=== PATIENT | male | born 1975 | race Caucasian/White ===

== ENCOUNTER 2022-06-21 11:02 | Day surgery (SDC) | payer OTHER ==
[~2022-06-21] VITALS: Ht 182.9 cm; Wt 97.3 kg
[2022-06-21] MEDS ORDERED: XANAX 0.5MG0.5 MG PO (11:59)
[2022-06-21] MEDS ORDERED: NEURONTIN300 MG/CAP PO (12:00)
[2022-06-21] MEDS ORDERED: GLUCOPHAGE1000 MG PO (12:00)
[2022-06-21] MEDS ORDERED: LEXAPRO20 MG PO (12:00)
[2022-06-21 12:03] VITALS: BP 115/75; PULSE 64; TEMP 98.3
[2022-06-21] MEDS ORDERED: ASPIRIN PO (12:03)
--- NOTE | 2022-06-21 13:27 | NUR ---
1250 - PT did not bring a medication list; medications reviewed w/ PT and his sister. PT states the list is correct.
--- NOTE | 2022-06-21 14:34 | NUR ---
Initial visit; Patient and family seemed pleased when Search Marketing Coordinator offered to pray with Babak prior to his Procedure. Search Marketing Coordinator wished him a thorough and rapid recovery.
[2022-06-21 15:35] VITALS: BP 115/77; PULSE 56; TEMP 97.6
--- NOTE | 2022-06-21 15:35 | NUR ---
1330 - Verbal report given to Mauro DOLAN for transfer of care.
[2022-06-21 15:45] VITALS: BP 113/74; PULSE 74
[2022-06-21 16:00] VITALS: BP 118/76; PULSE 51
--- NOTE | 2022-06-21 17:17 | NUR ---
1535 Pt arrives from PACU via cart and KELSI Hilliard assist. Monitors on and alarms set. Pt appears a little drowsy, but answering all questions appropriately. Report received from KELSI Hilliard. Pt reports pain at 2-3 out of 10 and no nausea. Ice applied to left leg. Pt requests water and saltine crackers. Pt's mom and sister brought to pt room. 1545 Pt more alert now, and his family is keeping him engaged and visiting. Pt taking food and drink well. 1610 Pt desires to ambulate to the restroom. Pt ambulates with crutch and this RN assist to restroom. Pt voids then returns with this RN assist and crutch assist to discharge bay. 1703 Discharge instructions given to pt and family. All questions answered to their satisfaction. 1717 Pt transferred out of hospital via wheelchair and this RN assist to private vehicle driven by family.
[2022-06-21 18:43] VITALS: BP 113/78; PULSE 58; TEMP 97.8
== END 2022-06-21 17:17 | disposition home or self-care (01) ==
LOC: SDCO 11:02
DX: S83.232A Complex tear of medial meniscus, current injury, left knee, initial encounter (principal); F17.200 Nicotine dependence, unspecified, uncomplicated; X58.XXXA Exposure to other specified factors, initial encounter
CPT/HCPCS: J0690; J1100; J1170; J2270; J2405; J2704; J3010; J7120